=== PATIENT | female | born 1955 | race Caucasian/White ===

== ENCOUNTER 2018-06-10 10:57 | Emergency (ER) | payer OTHER ==
[2018-06-10 11:11] VITALS: BP 153/70
[2018-06-10] MEDS ORDERED: DIPH,PERTUSS(ACELL),TET VAC/PF 0.5 ML DISP.SYRIN IM ONE (11:38)
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
== END 2018-06-10 11:55 | disposition home or self-care (01) ==
LOC: ED 10:57
DX: T25.032A Burn of unspecified degree of left toe(s) (nail), initial encounter (principal); X10.2XXA Contact with fats and cooking oils, initial encounter; Y93.G3 Activity, cooking and baking; Y92.9 Unspecified place or not applicable
CPT/HCPCS: 90471; 90715; 99283

== ENCOUNTER 2018-06-15 07:42 | Outpatient (CLI) | payer OTHER ==
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
== END 2018-06-15 07:44 ==
LOC: POD 07:42
PROVIDERS: ATTEND Podiatrist Foot & Ankle Surgery
DX: T25.231A Burn of second degree of right toe(s) (nail), initial encounter (principal); E11.9 Type 2 diabetes mellitus without complications; Y27.8XXA Contact with other hot objects, undetermined intent, initial encounter; Y93.9 Activity, unspecified; Y92.9 Unspecified place or not applicable
CPT/HCPCS: 99203

== ENCOUNTER 2018-06-30 08:22 | Outpatient (CLI) | payer OTHER ==
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
== END 2018-06-30 08:23 ==
LOC: POD 08:22
PROVIDERS: ATTEND Podiatrist Foot & Ankle Surgery
DX: T25.222A Burn of second degree of left foot, initial encounter (principal); X12.XXXA Contact with other hot fluids, initial encounter; Y92.9 Unspecified place or not applicable; B35.9 Dermatophytosis, unspecified; E11.9 Type 2 diabetes mellitus without complications
CPT/HCPCS: 11719; 99213; A4554